=== PATIENT | female | born 2000 | race Two or more races ===

== ENCOUNTER 2020-02-09 12:27 | Emergency (ER) | payer MEDICAID, OTHER ==
[~2020-02-09] VITALS: Ht 154.9 cm; Wt 66.3 kg
[2020-02-09 12:34] VITALS: BP 121/77
--- NOTE | 2020-02-09 13:06 | NUR ---
PAIN UNDER LEFT RIB THAT STARTED APPROXIMATELY 3 MONTHS AGO, INTERMITTENT AND SHARP IN NATURE. THIS EPISODE STARTED AT 0300 TODAY. PT DENIES NAUSEA.
--- NOTE | 2020-02-09 13:18 | NUR ---
xray delay for hcg results
--- NOTE | 2020-02-09 13:43 | NUR ---
LAB AT BEDSIDE
[2020-02-09 13:51] LABS: BASOPHILS # (AUTO) 0.03 x10^3/uL (0-0.1); BASOPHILS % (AUTO) 1 % (0-1); EOSINOPHILS # (AUTO) 0.08 x10^3/uL (0-0.4); EOSINOPHILS % (AUTO) 1 % (1-7); LYMPHOCYTES # (AUTO) 1.79 x10^3/uL (1-3.4); LYMPHOCYTES % (AUTO) 30 % (22-44); MD NO; MEAN CORPUSCULAR HEMOGLOBIN 27.7 pg (27.0-34.8); MEAN CORPUSCULAR HGB CONC 33.3 g/dL (32.4-35.8); MEAN CORPUSCULAR VOLUME 83.1 fL (80-100); MEAN PLATELET VOLUME 8.8 fL (7.4-10.4); MONOCYTES # (AUTO) 0.44 x10^3/uL (0.2-0.8); MONOCYTES % (AUTO) 7 % (2-9); NEUTROPHILS # (AUTO) 3.62 x10^3/uL (1.8-6.8); NEUTROPHILS % (AUTO) 61 % (42-75); PLATELET COUNT 315 x10^3/uL (130-400); RED BLOOD COUNT 5.23 x10^6/uL (3.82-5.3)
[2020-02-09 14:01] LABS: ALANINE AMINOTRANSFERASE 16 U/L (12-78); ALBUMIN 3.9 g/dL (3.4-5.0); ANION GAP 6 mmol/L (5-15); CALCIUM 9.1 mg/dL (8.5-10.1); CHLORIDE 109 mmol/L (98-107)
[2020-02-09 14:06] LABS: ALKALINE PHOSPHATASE 74 U/L (45-117); BILIRUBIN,TOTAL 0.4 mg/dL (0.2-1.0); CREATININE 0.65 mg/dL (0.55-1.02); TOTAL PROTEIN 7.7 g/dL (6.4-8.2)
--- NOTE | 2020-02-09 15:19 | NUR ---
Task RN: Patient given discharge instructions and plan for follow up care with PCP. Patient verbalized understanding of discharge paperwork and instructions. Patient ambulatory to discharge with steady gait
== END 2020-02-09 15:22 | disposition home or self-care (01) ==
LOC: ED 13:21
DX: G89.29 Other chronic pain (principal); R10.12 Left upper quadrant pain
CPT/HCPCS: 36415; 74022; 80053; 84703; 85025; 85379; 99284